=== PATIENT | female | born 1945 | race African-American/Black ===

== ENCOUNTER 2017-09-06 01:54 | Emergency (ER) | payer MEDICARE, MEDICAID ==
[~2017-09-06] VITALS: Ht 172.7 cm; Wt 99.8 kg
[~2017-09-06 01:54] MED LIST: ENALAPRIL; FEMARA; GABA1POW27; [UNRECOGNIZED DRUG - OTHER]
[2017-09-06] MEDS ORDERED: LIDOCAINE VISCOUS 2% 15ML UD PO ONE (03:00)
[2017-09-06] MEDS ORDERED: HYDROmorphone HCL 2 MG/ML VL IV ONE (03:00)
[2017-09-06] MEDS ORDERED: ONDANSETRON HCL 4 MG/2 ML VIAL IV ONE (03:00)
[2017-09-06 03:19] LABS: Basophils # (auto) 0.1 uL; Basophils % (auto) 0.9 % (0.0-2.0); Eosinophils # (auto) 0.1 uL; Eosinophils % (auto) 1.8 % (0.0-7.0); Hematocrit 39.7 % (36.0-46.0); Hemoglobin 13.1 g/dL (12.2-16.2); Lymphocytes % (auto) 49.6 % (10.0-50.0); Mean Corpuscular Hemoglobin 30.8 pg (28.0-32.0); Mean Corpuscular Volume 93.4 fL (80.0-100.0); Mean Platelet Volume 7.6 fL (6.9-10.8); Monocytes # (auto) 0.6 uL; Monocytes % (auto) 9.8 % (0.0-12.0); Neutrophils # (auto) 2.3 uL; Neutrophils % (auto) 37.9 % (37.0-80.0); Nucleated Red Blood Cells % 0.2 %; Platelet Count (auto) 263 10^3/uL (140-450); Red Cell Distribution Width 14.8 % (11.8-14.3); White Blood Cell 6.1 10^3/uL (4.4-10.8)
[2017-09-06 03:30] LABS: INR 0.92 (0.9-1.15); Partial Thromboplastin Time 23.9 sec (22.64-33.71)
[2017-09-06 03:33] LABS: Albumin 3.2 g/dL (3.4-5.0); BUN/Creatinine Ratio 11.8; Calcium 9.4 mg/dL (8.5-10.1); Potassium 3.9 mmol/L (3.5-5.1)
[2017-09-06 03:38] LABS: Bilirubin, Total 0.3 mg/dL (0.2-1.0); Total Protein 7.6 g/dL (6.4-8.2)
[2017-09-06 03:55] LABS: B-Type Natriuretic Peptide 80.8 pg/mL (0-100); Temperature: 21.5 C (20.0-25.0)
[2017-09-06 06:30] VITALS: BP 130/79
== END 2017-09-06 06:54 | disposition home or self-care (01) ==
LOC: EDBD 01:54 → ER 01:57
DX: K20.9 Esophagitis, unspecified (principal); K22.2 Esophageal obstruction; R07.9 Chest pain, unspecified; K21.0 Gastro-esophageal reflux disease with esophagitis; I10 Essential (primary) hypertension; J45.909 Unspecified asthma, uncomplicated; E11.9 Type 2 diabetes mellitus without complications; E78.00 Pure hypercholesterolemia, unspecified; M10.9 Gout, unspecified; Z90.49 Acquired absence of other specified parts of digestive tract; Z97.10 Presence of artificial limb (complete) (partial), unspecified
CPT/HCPCS: 36415; 71010; 80053; 83880; 84484; 85025; 85379; 85610; 85730; 93005; 94761; 96374; 96375; 99285; J1170; J2405